=== PATIENT | female | born 1970 | race Caucasian/White ===

== ENCOUNTER 2021-01-17 16:29 | Inpatient (IN) | payer OTHER, SELFPAY ==
[2021-01-17 16:39] VITALS: BP 144/98; PULSE 94; RESP 18; TEMP 36.7; O2SAT 100; BMI 23.3
[2021-01-17 19:44] VITALS: BP 135/89; PULSE 77; RESP 17; O2SAT 96
--- NOTE | 2021-01-17 20:01 | ECG_ITS ---
[facility] Test Date: 2021-01-17 Pat Name: Pilar Lara Department: Room: Gender: Female Transmitter Engineer: : [id number] Requested By: Ludin Cooney Order Number: [id number] Marta MD: Mervin Coronado M.D. Measurements Intervals [place] Rate: 82 P: 79 NM: 129 QRS: 97 QRSD: 139 T: 76 QT: 440 QTc: 516 Interpretive Statements SINUS RHYTHM WITH SINUS ARRHYTHMIA BORDERLINE RIGHT AXIS DEVIATION [QRS AXIS > 90] INTRAVENTRICULAR CONDUCTION DELAY [130+ ms QRS DURATION] POSSIBLE ANTERIOR MYOCARDIAL INFARCTION [30 ms Q WAVE IN V3/V4, OR R < 0.2 mV IN V4], OF INDETERMINATE AGE No previous ECG available for comparison Electronically Signed On 01-19-2021 14:46:04 CDT by Mervin Coronado M.D. [id number]
--- NOTE | 2021-01-17 20:02 | W.ED.GENADLT ---
HPI - General Adult General: Chief complaint: General Medical Stated complaint: Tick Bites/ Poss Hallucinations, Nausea Time Seen by Provider: 01/17/21 19:47 History of Present Illness: HPI narrative: This patient is a 50-year-old female who presents to the emergency department with having some odd behaviors with sister. Patient states that she was looking in the mirror this morning believe the baby takes were coming out of her neck. Patient states she scratched it Raw but try to get rid of all the takes. States that for several weeks she has had problems with seed ticks in her home. 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 Sister states that the patient has a long history of taking kratom and other herbal type medications and anxiety related medications. Patient also takes medications for fibromyalgia. Patient denies having history of bipolar disorder however the patient appears to be hypomanic. Patient states she has not been sleeping well for the past 3 weeks. And then cleans the house excessively. Patient excoriations all over her skin from where she states it takes her come out of her skin. Patient also has been taking other [id number] medications called HenryHappyBox and spoke superior marijuana oil. States it is not CBD oil but something stronger that she gets online. Patient is disheveled. Sisters believe that patient might be taking methamphetamine also. Patient does appear to be having some kind of psychosis with hallucinations. Patient avoids eye contact. Will do medical evaluation treat as needed. Onset (ago): week(s) Associated symptoms: Deny chest pain, dyspnea, headache(s), nausea, rash, palpitations or vomiting Review of Systems General: Reports: 10 or more systems reviewed and unremarkable except in HPI and below Const: Denies: fever(s), chills, body aches or fatigue Eyes: Denies: change in vision or blurry vision ENMT: Denies: throat pain, hoarseness or mouth pain Card: Denies: chest pain, palpitations, irregular heart rhythm, edema, swelling of feet/ankles or lightheadedness Resp: Denies: dyspnea, productive cough, non-productive cough, wheezing or pain on inspiration GI: Denies: abdominal pain, nausea or vomiting : Denies: flank pain, difficulty voiding, dysuria, urinary frequency, urinary urgency or urinary hesitancy Musc: Denies: neck pain, back pain, extremity pain, extremity swelling, joint pain, joint swelling, joint redness, joint warmth or limited range of motion Skin/Breast: Denies: rash, pruritus, erythema or skin tenderness Neuro: Denies: headache(s), numbness in extremities or weakness in extremities Psych: Reports: sleeping less, paranoia, difficulty concentrating, visual hallucinations and tactile hallucinations; Denies: anxiety or depression PFSH ED PFSH: Social History Current gender identity: Female Physical Exam Const: COMMON NORMALS: no acute distress, average body habitus, patient oriented x3, no limitations, healthy appearing, alert and well nourished HENMT: COMMON NORMALS: normocephalic, atraumatic, hearing grossly normal bilaterally, external ears normal, EAC's normal, TM's normal bilaterally, Normal external nose present, Normal nasal mucous membranes and turbinates present, moist oral mucous membranes, oropharynx normal, dentition normal and gingiva normal HEAD & SCALP: normocephalic and atraumatic NOSE: Normal external nose present and Normal nasal mucous membranes and turbinates present EXTERNAL EAR: Yes external ears normal EXTERNAL AUDITORY CANAL: EAC's normal TYMPANIC MEMBRANE: TM's normal bilaterally Neck/C-Spine: COMMON NORMALS: full ROM, no lymphadenopathy, supple, no meningeal signs, no JVD, Thyroid normal and No carotid bruits THYROID: Thyroid normal Chest: COMMONS NORMALS: normal inspection of the chest, normal palpation of entire chest wall, normal inspection of the breasts and normal palpation of the breasts Breast/axilla inspection: Yes normal inspection of the breasts BREAST/AXILLA PALPATION: Yes normal palpation of the breasts Resp: COMMON NORMALS: normal respiratory effort, No retractions, No use of accessory muscles, clear to auscultation bilaterally and percussion normal AUSCULTATION: clear to auscultation bilaterally PERCUSSION: percussion normal Cardio: COMMON NORMALS: no JVD, regular rate, regular rhythm, S1 normal heart sound present, S2 normal heart sound present, No gallops present (Cardio), No clicks present (Cardio), No murmurs present (Cardio), No rub (Cardio) and Peripheral pulses 2+ throughout RATE: regular rate RHYTHM: regular rhythm HEART SOUNDS: S1 normal heart sound present and S2 normal heart sound present PERIPHERAL PULSES: Peripheral pulses 2+ throughout GI: COMMON NORMALS: Normal to inspection, nondistended, normoactive bowel sounds present, Soft to palpation, non-tender, No hepatosplenomegaly present, no masses and no bruits PALPATION: Yes Soft to palpation and Yes No hepatosplenomegaly present : COMMON NORMALS: Yes no CVA tenderness, Yes normal external appearance, Yes normal appearance of the vagina, Yes normal appearance of the cervix, Yes normal bimanual exam, Yes No adnexal tenderness and Yes no masses BLADDER/KIDNEY EXAM: Yes no CVA tenderness BIMANUAL EXAM - VAGINA & UTERUS: Yes normal bimanual exam Back/Pelvis: COMMON NORMALS: no CVA tenderness, thoracic and lumbar spine normal to inspection, no thoracic nor lumbar tenderness, thoraco-lumbar ROM normal and straight leg raise negative bilaterally Extremity: COMMON NORMALS: normal to inspection, full ROM, capillary refill normal, no joint enlargement, no clubbing, cyanosis or edema, no calf tenderness and no pedal edema Neuro: COMMON NORMALS: patient oriented x3 SENSORIUM/ORIENTATION: Yes alert MENINGEAL SIGNS: Yes no meningeal signs Psych: COMMON NORMALS: cooperative APPEARANCE: Yes disheveled ATTITUDE: Yes bizarre ACTIVITY/MOTOR BEHAVIOR: Yes fidgeting and Yes Avoids eye contact (attititude/behavior) THOUGHT PROCESS: Flight of ideas present THOUGHT CONTENT: Yes delusions and Yes Hallucination(s) present Skin: COMMON NORMALS: no wounds, no jaundice, no petechiae and no mottling NARRATIVE SKIN EXAM: Patient has significant excoriations around her neck and chest area. Patient also has some erythema to the lower extremities consistent with vasculitis and poor hygiene. Course Reevaluation(s): Reevaluation #1: I did discuss at length with patient and family about findings. Concerning the patient's hallucinations and psychosis is related to methamphetamine abuse. Patient now admits that she has been abusing methamphetamine by smoking since the age of 27 states she usually rolls it on a piece of toilet paper. Smoking over a day per time. Patient also abuses abuses other medications like [place], Henry Candelaria and others. Patient has not slept in several days. Patient is agreeable for admission to the hospital. Time: 23:24 Consultations: Consultation #1: I did discuss at length with Dr. Coon psychiatry. He is agreeable to admit the patient for observation. Time: 23:24 Vital Signs: Vital signs: Vital Signs Temperature 98.1 F 01/17/21 16:39 Pulse Rate 72 01/17/21 22:08 Respiratory Rate 18 01/17/21 22:08 Blood Pressure 128/75 01/17/21 22:08 Pulse Oximetry 98 01/17/21 22:08 MDM - General Adult MDM Narrative: Medical decision making narrative: This patient is a 50-year-old female who presents to the emergency department with having some odd behaviors with sister. Patient states that she was looking in the mirror this morning believe the baby takes were coming out of her neck. Patient states she scratched it Raw but try to get rid of all the takes. States that for several weeks she has had problems with seed ticks in her home. 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 Sister states that the patient has a long history of taking kratom and other herbal type medications and anxiety related medications. Patient also takes medications for fibromyalgia. Patient denies having history of bipolar disorder however the patient appears to be hypomanic. Patient states she has not been sleeping well for the past 3 weeks. And then cleans the house excessively. Patient excoriations all over her skin from where she states it takes her come out of her skin. Patient also has been taking other obtr-mma-rizsjbr medications called Henry main and spoke superior marijuana oil. States it is not CBD oil but something stronger that she gets online. Patient is disheveled. Sisters believe that patient might be taking methamphetamine also. Patient does appear to be having some kind of psychosis with hallucinations. Patient avoids eye contact. I did discuss at length with patient and family about findings. Concerning the patient's hallucinations and psychosis is related to methamphetamine abuse. Patient now admits that she has been abusing methamphetamine by smoking since the age of 27 states she usually rolls it on a piece of toilet paper. Smoking over a day per time. Patient also abuses abuses other medications like [place], Henry Candelaria and others. Patient has not slept in several days. Patient is agreeable for admission to the hospital. I did discuss at length with Dr. Coon psychiatry. He is agreeable to admit the patient for observation. Lab Data: Labs: Lab Results 01/17/21 01/17/21 01/17/21 Range/Units 20:18 20:18 21:30 WBC 7.2 (4.0-10.0) 10^3/ uL RBC 4.70 (4.1-5.3) 10^6/u L Hgb 13.5 (11.5-15.3) g/dL Hct 41.3 (37.0-47.0) % MCV 87.9 (81-99) fL MCH 28.7 (28.0-34.0) pg MCHC 32.7 (30.0-36.0) g/dL RDW 13.1 (12.1-15.1) % Plt Count 300 (130-400) 10^3/c mm MPV 9.9 (7.4-10.4) fL Neut % (Auto) 55.7 % Lymph % (Auto) 27.7 % Banner % (Auto) 10.2 % Eos % (Auto) 5.6 % Baso % (Auto) 0.7 % Neut # (Auto) 3.98 (1.8-7.7) 10^3/u L Lymph # (Auto) 2.0 (0.8-4.8) 10^3/u L Banner # (Auto) 0.7 (0.2-0.9) 10^3/u L Eos # (Auto) 0.4 (0.0-0.8) 10^3/u L Baso # (Auto) 0.1 (0.0-0.1) 10^3/u L Nucleated RBC % (a uto) 0 % Nucleated RBCs # 0.0 /100WBC Sodium 140 (136-145) mmol/L Potassium 3.4 L (3.5-5.1) mmol/L Chloride 103 (98-107) mmol/L Carbon Dioxide 25 (22-29) mmol/L Anion Gap 15.4 (5-19) BUN 5 L (6-20) mg/dL Creatinine 0.7 (0.5-0.9) mg/dL GFR Calculation 87.9 L (90-130) mL/min Glucose 91 (65-115) mg/dL Calculated Osmolal ity 287 (285-295) mOsm/k g Calcium 9.3 (8.5-10.5) mg/dL Total Bilirubin 0.3 (0.15-1.2) mg/dL AST 19 (0-32) U/L ALT 16 (0-33) U/L Alkaline Phosphata se 90 (35-105) IU/L Total Protein 6.6 (6.6-8.7) g/dL Albumin 4.5 (3.5-5.2) g/dL Globulin 2.1 (1.3-4.6) g/dL Urine Color Yellow (Yellow) Urine Appearance Clear (CLEAR) Urine pH 8 H (5-7) Ur Specific Gravit y 1.005 (1.005-1.030) Urine Protein Neg (Negative) Urine Glucose (UA) Norm (Normal) Urine Ketones Negative (Negative) Urine Blood Neg (Negative) Urine Nitrate Negative (Negative) Urine Bilirubin Neg (Negative) Prot Sulfosalicyli c Acd Negative (Negative) Urine Urobilinogen Norm (Negative) mg/dL Ur Leukocyte Chantelle ase Negative (Negative) Salicylates < 0.3 L (3-10) mg/dL Urine Opiates Scre en (Negative) ng/mL Acetaminophen < 5.0 L (10-30) ug/mL Ur Barbiturates Sc reen (Negative) ng/mL Ur Phencyclidine S crn (Negative) ng/mL Ur Amphetamines Sc reen (Negative) ng/mL U Benzodiazepines Scrn (Negative) ng/mL Urine Cocaine Scre en (Negative) ng/mL U Marijuana (THC) Screen (Negative) ng/mL Ethyl Alcohol < 10 (0-10) mg/dL 01/17/21 Range/Units 21:30 WBC (4.0-10.0) 10^3/ uL RBC (4.1-5.3) 10^6/u L Hgb (11.5-15.3) g/dL Hct (37.0-47.0) % MCV (81-99) fL MCH (28.0-34.0) pg MCHC (30.0-36.0) g/dL RDW (12.1-15.1) % Plt Count (130-400) 10^3/c mm MPV (7.4-10.4) fL Neut % (Auto) % Lymph % (Auto) % Banner % (Auto) % Eos % (Auto) % Baso % (Auto) % Neut # (Auto) (1.8-7.7) 10^3/u L Lymph # (Auto) (0.8-4.8) 10^3/u L Banner # (Auto) (0.2-0.9) 10^3/u L Eos # (Auto) (0.0-0.8) 10^3/u L Baso # (Auto) (0.0-0.1) 10^3/u L Nucleated RBC % (a uto) % Nucleated RBCs # /100WBC Sodium (136-145) mmol/L Potassium (3.5-5.1) mmol/L Chloride (98-107) mmol/L Carbon Dioxide (22-29) mmol/L Anion Gap (5-19) BUN (6-20) mg/dL Creatinine (0.5-0.9) mg/dL GFR Calculation (90-130) mL/min Glucose (65-115) mg/dL Calculated Osmolal ity (285-295) mOsm/k g Calcium (8.5-10.5) mg/dL Total Bilirubin (0.15-1.2) mg/dL AST (0-32) U/L ALT (0-33) U/L Alkaline Phosphata se (35-105) IU/L Total Protein (6.6-8.7) g/dL Albumin (3.5-5.2) g/dL Globulin (1.3-4.6) g/dL Urine Color (Yellow) Urine Appearance (CLEAR) Urine pH (5-7) Ur Specific Gravit y (1.005-1.030) Urine Protein (Negative) Urine Glucose (UA) (Normal) Urine Ketones (Negative) Urine Blood (Negative) Urine Nitrate (Negative) Urine Bilirubin (Negative) Prot Sulfosalicyli c Acd (Negative) Urine Urobilinogen (Negative) mg/dL Ur Leukocyte Chantelle ase (Negative) Salicylates (3-10) mg/dL Urine Opiates Scre en Negative (Negative) ng/mL Acetaminophen (10-30) ug/mL Ur Barbiturates Sc reen Negative (Negative) ng/mL Ur Phencyclidine S crn Negative (Negative) ng/mL Ur Amphetamines Sc reen Positive H (Negative) ng/mL U Benzodiazepines Scrn Negative (Negative) ng/mL Urine Cocaine Scre en Negative (Negative) ng/mL U Marijuana (THC) Screen Negative (Negative) ng/mL Ethyl Alcohol (0-10) mg/dL EKG Data^: EKG 1: Attestation: I personally reviewed and interpreted this EKG as follows: EKG interpretation date: 01/17/21 EKG interpretation time: 20:07 Prior EKG tracings: not available for review Interpretation: Sinus rhythm with sinus arrhythmia. Questionable right axis deviation. Interventricular conduction delay. Heart rate 82 nonspecific EKG changes. Discharge Plan Discharge Patient Disposition: Placed in Observation Clinical Impression: Acute psychosis, Methamphetamine abuse, Polysubstance abuse Condition: Stable Prescriptions: No Action sumatriptan succinate 100 mg tablet 100 mg PO Q2H PRN (Reason: Headache) RF: 0 omeprazole 40 mg capsule,delayed release(DR/EC) 40 mg PO DAILY RF: 0 trazodone 100 mg tablet 100 mg PO BEDTIME RF: 0 albuterol sulfate 90 mcg/actuation HFA aerosol inhaler 2 inh INHALATION QID PRN (Reason: Shortness Of Breath) RF: 0 topiramate 100 mg tablet 100 mg PO DAILY RF: 0 duloxetine 60 mg capsule,delayed release(DR/EC) 60 mg PO BID RF: 0 Referrals: Delphine Cabral RN [Primary Care Provider] - Coding Level of Care Code ED Manager Consumer for Chg Fwd Exam Comprehensive
[2021-01-17] MEDS: sodium chloride 0.9% 1,000 ML 999 ML IV (20:17)
[2021-01-17 20:25] LABS: Basophils # 0.1 10^3/uL (0.0-0.1); Basophils % 0.7 %; Eosinophils # 0.4 10^3/uL (0.0-0.8); Eosinophils % 5.6 %; Hematocrit 41.3 % (37.0-47.0); Hemoglobin 13.5 g/dL (11.5-15.3); Lymphocytes % 27.7 %; Mean Corpuscular HGB Conc 32.7 g/dL (30.0-36.0); Mean Corpuscular Hemoglobin 28.7 pg (28.0-34.0); Mean Corpuscular Volume 87.9 fL (81-99); Mean Platelet Volume 9.9 fL (7.4-10.4); Monocytes # 0.7 10^3/uL (0.2-0.9); Monocytes % 10.2 %; Neutrophils # 3.98 10^3/uL (1.8-7.7); Neutrophils % 55.7 %; Nucleated Red Blood Cells % 0 %; Platelet Count 300 10^3/cmm (130-400); Red Cell Distribution Width 13.1 % (12.1-15.1); White Blood Count 7.2 10^3/uL (4.0-10.0)
[2021-01-17 20:39] LABS: Alanine Aminotransferase 16 U/L (0-33); Albumin Level 4.5 g/dL (3.5-5.2); Alkaline Phosphatase 90 IU/L (35-105); Anion Gap 15.4 (5-19); Aspartate Amino Transferase 19 U/L (0-32); Blood Urea Nitrogen 5 mg/dL (6-20); Calcium 9.3 mg/dL (8.5-10.5); Carbon Dioxide 25 mmol/L (22-29); Chloride 103 mmol/L (98-107); Globulin 2.1 g/dL (1.3-4.6); Glomerular Filtration Rate 87.9 mL/min (90-130); Glucose 91 mg/dL (65-115); Osmolality Calculated 287 mOsm/kg (285-295); Potassium 3.4 mmol/L (3.5-5.1); Sodium 140 mmol/L (136-145); Total Bilirubin 0.3 mg/dL (0.15-1.2); Total Protein 6.6 g/dL (6.6-8.7)
[2021-01-17 20:40] LABS: Acetaminophen < 5.0 ug/mL (10-30); Alcohol Level < 10 mg/dL (0-10); Salicylate < 0.3 mg/dL (3-10)
[2021-01-17 21:46] LABS: Add Urine Microscopic? NO; Charge for UA Resulting for Rev
[2021-01-17 21:55] LABS: Bilirubin Urine Neg (Negative); Blood Urine Neg (Negative); Glucose Urine UA Norm (Normal); Ketones Urine Negative (Negative); Leukocyte Esterase Urine Negative (Negative); Nitrate Urine Negative (Negative); Protein Urine Neg (Negative); Specific Gravity, Urine 1.005 (1.005-1.030); Sulfosalicylic Acid Urine Negative (Negative); Urine Appearance Clear (CLEAR); Urine Color Yellow (Yellow); Urobilinogen Urine Norm (Negative); pH Urine 8 (5-7)
[2021-01-17 22:08] VITALS: BP 128/75; PULSE 72; RESP 18; O2SAT 98
[2021-01-17 22:13] LABS: Amphetamines Screen Urine Positive (Negative); Barbiturates Screen Urine Negative (Negative); Benzodiazepines Screen Urine Negative (Negative); Cocaine Screen Urine Negative (Negative); Opiate Screen Urine Negative (Negative); PCP Screen Urine Negative (Negative); THC Screen Urine Negative (Negative)
[2021-01-17 23:49] VITALS: BP 127/81; PULSE 71; RESP 17; O2SAT 98
[2021-01-18 00:15] VITALS: BP 130/83; PULSE 75; RESP 21; TEMP 36.7; O2SAT 99
--- NOTE | 2021-01-18 01:00 | PC.NURSE ---
Skin Assessment Pt does not have surgical scars, she does have two small pimple-like areas on her chest. She kept her underwear and socks at bedside, removed her rivera hair clips.
[2021-01-18 03:55] VITALS: RESP 18
[2021-01-18 13:37] VITALS: BP 133/81; PULSE 82; RESP 14; TEMP 37; O2SAT 97
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
[2021-01-18 21:15] VITALS: BP 129/83; PULSE 68; RESP 18; TEMP 36.6; O2SAT 96
[2021-01-19] MEDS: trazodone 50 mg Tablet PO (01:09)
[2021-01-19] MEDS: hyDROXYzine 25 mg Capsule 50 MG PO (01:09)
[2021-01-19 06:00] VITALS: BP 135/86; PULSE 73; RESP 17; TEMP 36.6; O2SAT 96
[2021-01-19] MEDS: topiramate 100 mg Tablet PO (10:09)
[2021-01-19 14:00] VITALS: BP 134/69; PULSE 77; RESP 18; TEMP 37.1; O2SAT 94
--- NOTE | 2021-01-19 17:37 | PM.NPN ---
Subjective NPU Subjective: Interval history: Pilar presents today reporting that she does not believe she probably had tics. She was able to have a reasonable conversation about her methamphetamine use likely probably still downplaying it but at least acknowledging that it exists as a problem that needs addressed and that her behaviors likely represented psychosis secondary to her methamphetamine use. She reports that she has been able to speak to her sister and they are trying to look at solutions to her current situation so that she will have supports and not lack accountability in her living arrangement. We talked about the possibility of discharge if she remains stable in the next 24 to 48 hours. Mental Status Exam MSE Comments: This is a slender white female limited grooming and eye contact. No abnormal movements except for psychomotor agitation. More cooperative with exam in no acute distress. Speech was more normal rate and volume. Mood described as a little better, affect odd. Thought process mostly organized. Thought content: Patient denied suicidal or homicidal ideation, there were no delusions reported or noted, she denied auditory or visual hallucinations, but was clearly having visual hallucinations. Attention and concentration were intact and memory was mostly reliable but none were formally tested. She is alert and oriented times 3. Insight and judgment are improving, impulse control is limited, but improving. Vitals/I&O/Wt Last Vital Signs Temp 97.9 F 01/19/21 20:14 Pulse 71 01/19/21 20:14 Resp 17 01/19/21 20:14 BP 159/68 01/19/21 20:14 Pulse Ox 90 01/19/21 20:14 Data NPU : 01/17/21 20:18 01/17/21 20:18 A&P Additional A&P Information (1) Acute psychosis: (2) Methamphetamine abuse: (3) Polysubstance abuse: Additional A&P Information This is a 50-year-old white female with a long history of addiction and psychosocial challenges who presents with active methamphetamine use with likely methamphetamine induced psychosis who presents unaware of her psychosis and desiring to leave. 1. Continue current medication. 2. Continue every 15 minute checks for safety. 3. Encourage individual, group and milieu therapies. 4. Encourage sober living treatment after discharge at the highest level of care to which he is willing to commit. Involuntary Hold Information 96 Hour Hold: 96 Hour Involuntary Admission: No Attestations NPU Medical Necessity Statement*: Inpatient hospitalization is medically necessary and the clinically appropriate intervention at this time. Likely length of stay 1-3 days. Coding Level of Care Code Acute Lead Front Desk Agent for Jeb Solano
[2021-01-19 20:14] VITALS: BP 159/68; PULSE 71; RESP 17; TEMP 36.6; O2SAT 90
[2021-01-19] MEDS: pantoprazole DR 40 mg Tablet PO (20:16)
--- NOTE | 2021-01-19 20:30 | PC.NURSE ---
Behavior Pt is hostile, irritable, and reports fibromyalgia pain that is not well controlled. Med nurse notified. Dr Coon ordered home meds to be restarted. Protonix 40mg PO once one given.
[2021-01-19] MEDS: duloxetine 60 mg Capsule PO (20:38)
[2021-01-19] MEDS: trazodone 100 mg Tablet PO (20:38)
[2021-01-19] MEDS: acetaminophen 325 mg Tablet 650 MG PO (20:38)
[2021-01-20 06:00] VITALS: BP 116/71; PULSE 61; RESP 17; TEMP 36.9; O2SAT 97
[2021-01-20] MEDS: topiramate 100 mg Tablet PO (08:29)
[2021-01-20] MEDS: duloxetine 60 mg Capsule PO (08:29)
[2021-01-20] MEDS: pantoprazole DR 40 mg Tablet PO (08:29)
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
[2021-01-20 13:11] VITALS: BP 116/71; PULSE 61; RESP 17; TEMP 36.9; O2SAT 97
== END 2021-01-20 14:20 | disposition home or self-care (01) | DRG 897 ==
LOC: ER 23:33 → NP 23:42
PROVIDERS: Admitting Provider Psychiatry & Neurology Psychiatry; Emergency Provider Emergency Medicine; Visit Provider Psychiatry & Neurology Psychiatry
DX: F15.151 Other stimulant abuse with stimulant-induced psychotic disorder with hallucinations (principal); F41.9 Anxiety disorder, unspecified; M79.7 Fibromyalgia; S10.91XA Abrasion of unspecified part of neck, initial encounter; X58.XXXA Exposure to other specified factors, initial encounter; F32.9 Major depressive disorder, single episode, unspecified
CPT/HCPCS: 80053; 80306; 80307; 81003; 85025; 93005; 96360; 99285; G0378; J7030

== ENCOUNTER → 2021-09-27 15:56 | Outpatient (BNVA) | payer OTHER, SELFPAY | PROVIDERS: Visit Provider Nurse Practitioner Psychiatric/Mental Health | DX: Z03.89 Encounter for observation for other suspected diseases and conditions ruled out (principal) | CPT/HCPCS: 80053; 80307 ==

== ENCOUNTER → 2022-05-17 08:25 | Outpatient (BNVA) | payer SELFPAY | PROVIDERS: Visit Provider Nurse Practitioner Women's Health | DX: Z11.3 Encounter for screening for infections with a predominantly sexual mode of transmission (principal); Z12.4 Encounter for screening for malignant neoplasm of cervix | CPT/HCPCS: 86592; 86803; 87340; 87491; 87591; 87624; 87661; 87806 ==

== ENCOUNTER → 2022-09-17 16:43 | Outpatient (BNVA) | payer OTHER, SELFPAY | PROVIDERS: Visit Provider Nurse Practitioner Psychiatric/Mental Health | DX: Z03.89 Encounter for observation for other suspected diseases and conditions ruled out (principal) | CPT/HCPCS: 80307 ==

== ENCOUNTER 2023-01-03 14:34 | Outpatient (CLI) | payer OTHER, SELFPAY ==
--- NOTE | 2023-01-03 14:30 | XR_ITS ---
WS: [id number] DEXA (DUAL ENERGY X-RAY ABSORPTIOMETRY) Bone mineral density was performed using a [employer] machine. HISTORY: post-menopausal COMPARISON: None available. Lumbar spine BMD (L1-L4): 1.020 g/cm2 T score: -1.3 Z score: -0.7 Total hip BMD: Left: 0.865 g/cm2. T score: -1.1 Z score: -0.6 Right: 0.912 g/cm2. T score: -0.8 Z score: -0.2 10 year probability of a major osteoporotic fracture is 12.0%. XR/XR DEXA axial skeleton* [id number] IMPRESSION: OSTEOPENIA based upon the WHO classification for females.
--- NOTE | 2023-01-03 14:43 | MM_ITS ---
WS: [id number] VIEWS: MLO and CC views both breasts. 3D digital tomosynthesis is also included in this exam. Comparison made with prior exam of 05/20/2008, 01/23/2011, 07/19/2014, 07/20/2015,. Findings: There was no sign of mass, architectural distortion or suspicious calcification in either breast. Th e breasts are heterogeneously dense which may obscure small masses MM/[place] [id number] Impression: BI-RADS: 2-Benign finding. FOLLOW-UP: 1 Year Follow-up This mammogram was also analyzed by the Computer Aided Detection System [employer].
== END 2023-01-03 14:35 | disposition home or self-care (01) ==
LOC: RAD 14:37
PROVIDERS: PCP Family Medicine; Visit Provider Family Medicine
DX: Z12.31 Encounter for screening mammogram for malignant neoplasm of breast (principal); M85.80 Other specified disorders of bone density and structure, unspecified site; Z78.0 Asymptomatic menopausal state
CPT/HCPCS: 77063; 77067; 77080

== ENCOUNTER 2023-02-15 08:03 | Outpatient (CLI) | payer OTHER, SELFPAY ==
[2023-02-15 08:55] LABS: Basophils % 0.5 %; Eosinophils # 0.3 10^3/uL (0.0-0.8); Eosinophils % 5.3 %; Hematocrit 40.3 % (37.0-47.0); Hemoglobin 13.4 g/dL (11.5-15.3); Lymphocytes # 1.5 10^3/uL (0.8-4.8); Lymphocytes % 26.5 %; Mean Corpuscular HGB Conc 33.3 g/dL (30.0-36.0); Mean Corpuscular Hemoglobin 28.5 pg (28.0-34.0); Mean Corpuscular Volume 85.6 fl (81-99); Mean Platelet Volume 9.6 fL (7.4-10.4); Monocytes # 0.6 10^3/uL (0.2-0.9); Monocytes % 9.8 %; Neutrophils # 3.35 10^3/uL (1.8-7.7); Neutrophils % 57.6 %; Nucleated Red Blood Cells % 0 %; Platelet Count 259 10^3/cmm (130-400); Red Blood Count 4.71 10^6/uL (4.1-5.3); Red Cell Distribution Width 12.6 % (12.1-15.1); White Blood Count 5.8 10^3/uL (4.0-10.0)
[2023-02-15 09:06] LABS: Ammonia 59 umol/L (11-51)
[2023-02-15 09:12] LABS: Valproic Acid Level 12.9 ug/mL (50-100)
[2023-02-15 09:37] LABS: 25 Hydroxy Vitamin D 61 ng/mL (30-100); Alanine Aminotransferase 19 U/L (0-33); Albumin Level 4.4 g/dL (3.5-5.2); Alkaline Phosphatase 76 U/L (35-105); Anion Gap 14.2 (5-19); Aspartate Amino Transferase 17 U/L (0-32); Blood Urea Nitrogen 16 mg/dL (6-20); Calcium 8.8 mg/dL (8.5-10.5); Carbon Dioxide 29 mmol/L (22-29); Chloride 102 mmol/L (98-107); Chol HDL Ratio 3.22 mg/dL (0.0-4.40); Cholesterol 203 mg/dL (0-200); Globulin 2.4 g/dL (1.3-4.6); Glomerular Filtration Rate 87.2 mL/min (90-130); Glucose 96 mg/dL (65-115); HDL Cholesterol 63 mg/dL (60-100); LDL Cholesterol Calculated 119 mg/dL (50-129); LDL HDL Ratio 1.89 RATIO (0.00-3.22); Osmolality Calculated 293 mOsm/kg (285-295); Potassium 4.2 mmol/L (3.5-5.1); Sodium 141 mmol/L (136-145); Thyroid Stimulating Hormone 0.81 uIU/mL (0.27-4.20); Total Bilirubin 0.4 mg/dL (0.15-1.2); Total Protein 6.8 g/dL (6.6-8.7); Triglycerides 104 mg/dL (0-150)
== END 2023-02-15 08:04 | disposition home or self-care (01) ==
PROVIDERS: Nurse Practitioner; PCP Family Medicine; Visit Provider Family Medicine
DX: E55.9 Vitamin D deficiency, unspecified (principal); Z13.6 Encounter for screening for cardiovascular disorders; Z86.39 Personal history of other endocrine, nutritional and metabolic disease; Z51.81 Encounter for therapeutic drug level monitoring
CPT/HCPCS: 36415; 80053; 80061; 80164; 82140; 82248; 82306; 84443; 85025

== ENCOUNTER 2023-04-21 11:32 | Emergency (ER) | payer OTHER, SELFPAY ==
[2023-04-21 11:45] VITALS: BMI 24.2
[2023-04-21 11:47] VITALS: BP 121/79; PULSE 92; RESP 16; TEMP 36.6; O2SAT 100
--- NOTE | 2023-04-21 12:37 | CT_ITS ---
WS: [id number] CT HEAD NONCONTRAST HISTORY: injury TECHNIQUE: Contiguous axial imaging performed through the brain in 2.5 mm imaging. Bone and soft tiss ue windows. Sagittal and coronal reformats reviewed. All CT scans at [facility] use at least one of these dose optimization techniques: automated exposure control; mA and/or kV adjustment per pa tient size (includes targeted exams where dose is matched to clinical indication); or iterative recon struction. DLP: 1335.80 mGy.cm COMPARISON: 08/03/2013 No acute intracranial hemorrhage, midline shift or mass effect. No atrophy or prior infarcts or herniation. Ventricles: Normal size with no hydrocephalus. No inferior displacement of the cerebellar tonsils. Paranasal sinuses: As visualized are clear. Mastoid air cells: Well pneumatized. Calvarium and scalp: No skull fracture. Small LEFT prior occipital scalp hematoma. IMPRESSION: 1. No acute intracranial hemorrhage or edema. 2. Small posterior LEFT parieto-occipital scalp hematoma.
--- NOTE | 2023-04-21 12:39 | ED_ITS ---
HPI - Head Injury General: Chief complaint: Head Injury Stated complaint: fall, head injury Time Seen by Provider: 04/21/23 12:30 Source: patient Mode of arrival: ambulatory Limitations: no limitations History of Present Illness: 52-year-old female states that 2 hours ago she tripped and fell backwards. States that she did hit the back of her head on the floor and has had posterior head and neck pain she rates a 5 out of 10 denies any loss conscious does have a headache denies any vomiting. She denies any other injuries. Associated symptoms: Reports neck pain; Deny nausea or vomiting Review of Systems Const: Denies: fever(s), chills, body aches or change in appetite Eyes: Denies: blurry vision or eye discomfort ENMT: Denies: throat pain or dental pain Card: Denies: chest pain Resp: Denies: dyspnea GI: Denies: abdominal pain, nausea, vomiting or diarrhea : Denies: dysuria Musc: Reports: neck pain; Denies: back pain Skin/Breast: Denies: rash Neuro: Reports: headache(s) PFSH ED PFSH: Medical History Adult ADHD Chronic migraine Major depressive disorder, recurrent, in partial remission Methamphetamine abuse Sober for two years Psychiatric care Surgical History Hx of foot surgery R foot Hx of hysterectomy (~04/23/16) Total vaginal hysterectomy, Left salpingo-oophorectomy, Right salpingectomy, Anterior vaginal repair, Solyx single incision suburethral sling, Cystoscopy. Diagnosis: Incomplete uterovaginal prolapse, Mixed urinary incontinence, Menorrhagia with regular cycles. Performed by Dr. Ludin Youngblood at [facility] in [place], [place]. Family History Unknown Breast cancer Several family members on paternal side Heart disease maternal side Mother Heart disease Diabetes Sister Stroke Denies family history of Colon cancer Ovarian cancer Hypercholesteremia Hypertension Uterine cancer Thyroid disease Physical Exam Const: COMMON NORMALS: no acute distress, patient oriented x3 and healthy appearing HENMT: COMMON NORMALS: normocephalic HEAD & SCALP: normocephalic OTHER: tenderness to posterior scalp Eye: COMMON NORMALS: Equal, round and reactive pupils present and EOMs intact bilaterally PUPIL: Yes Equal, round and reactive pupils present Neck/C-Spine: COMMON NORMALS: full ROM and supple Chest: COMMONS NORMALS: normal inspection of the chest Resp: COMMON NORMALS: normal respiratory effort Cardio: COMMON NORMALS: regular rate, regular rhythm and No murmurs present (Cardio) RATE: regular rate RHYTHM: regular rhythm Extremity: COMMON NORMALS: normal to inspection and full ROM Neuro: COMMON NORMALS: patient oriented x3, moves all extremities and no focal motor deficits Psych: COMMON NORMALS: mental status grossly normal, Normal thought process present and cooperative THOUGHT PROCESS: Normal thought process present Skin: COMMON NORMALS: no rashes or lesions noted and no wounds GENERAL SKIN EXAM: no rashes or lesions noted Course Vital Signs: Vital signs: Vital Signs Temperature 97.9 F 04/21/23 11:47 Pulse Rate 92 04/21/23 11:47 Respiratory Rate 16 04/21/23 11:47 Blood Pressure 121/79 04/21/23 11:47 Pulse Oximetry 100 04/21/23 11:47 Oxygen Delivery Me thod Room Air 04/21/23 11:47 MDM - Head Injury Medcial Decision Making Patient presents with closed head injury patient's CT scans here are normal she is well-appearing here she is stable for discharge she is to follow-up with her PCP and return if worsening she understands agrees to plan. Medical Records I reviewed the patient's medical records. All radiology interpretation(s) finalized by discharge Discharge Plan Discharge Patient Disposition: Home Clinical Impression: Closed head injury Condition: Stable Prescriptions: No Action fluticasone propion-salmeterol [Advair Diskus] 250-50 mcg/dose blister with device 1 inh inhalation BID Qty: 60 2RF albuterol sulfate 90 mcg/actuation HFA aerosol inhaler 2 inh INHALATION QID PRN (Reason: Shortness Of Breath) Qty: 8.5 2RF duloxetine 60 mg capsule,delayed release(DR/EC) 60 mg PO BID Qty: 60 2RF hydrocortisone 2.5 % ointment 1 g topical DAILY PRN (Reason: Rash) Emgality Syringe 120 mg/mL syringe 240 mg SUBCUT ONCE Qty: 2 0RF Rx Instructions: loading dose atomoxetine 40 mg capsule 80 mg PO QAM Qty: 60 2RF Rx Instructions: Take two capsules by mouth every morning sumatriptan succinate 100 mg tablet See Rx Instructions PO .COMPLEX Qty: 18 3RF Rx Instructions: take 1 tab at onset of headache; if no relief, may repeat 1 tab after at least 2 hrs; max = 2 tabs/24 hrs PO meloxicam 15 mg tablet 15 mg PO DAILY PRN (Reason: Pain) trazodone 100 mg tablet 200 mg PO BEDTIME PRN (Reason: Insomnia) Discharge Orders: Discharge ED (Routine); Ordered 04/21/23 Ordered By: Shay Templeton Referrals: Ivory Sierra DO [Primary Care Provider] - 1-3 days Discharge Diet: Advance as tolerated Discharge Activity: Resume usual activity Patient Instructions: Head Injury (ED) Coding Level of Care Code ED Shoulder Boner for Jeb Solano
--- NOTE | 2023-04-21 12:39 | CT_ITS ---
WS: [id number] CT CERVICAL SPINE HISTORY: fall TECHNIQUE: Contiguous 2.0 mm axial imaging performed through the entire cervical spine. Sagittal and coronal reformats also performed. All CT scans at [facility] use at least one of these dose o ptimization techniques: automated exposure control; mA and/or kV adjustment per patient size (include s targeted exams where dose is matched to clinical indication); or iterative reconstruction. DLP: 1335.80 mGy.cm COMPARISON: None available. Mild straightening of the normal cervical lordosis. Less than 2 mm anterolisthesis of C4 and C5. Mode rate disc space narrowing at C6-7. Facet joints are normally aligned. Osseous fusion on the RIGHT inv olving the C3 and C4 facets. C2-C3: Mild bilateral facet joint arthritis. Mild LEFT foraminal narrowing. C3-C4: Bilateral facet joint arthritis. Mild RIGHT foraminal narrowing. C4-C5: Marked bilateral facet joint arthritis. Moderate to severe bilateral foraminal stenosis. C5-C6: Moderate bilateral facet joint arthritis and foraminal narrowing. C6-C7: Mild bilateral facet arthritis and foraminal narrowing. C7-T1: Normal. Soft tissues are normal. Lung apices are clear. IMPRESSION: 1. No cervical spine fracture. 2. Multilevel facet joint arthritis as described above.
[2023-04-21] MEDS: HYDROcodone-acetaminophen 5-325 mg Tablet 1 TAB PO (12:41)
== END 2023-04-21 14:11 | disposition home or self-care (01) ==
PROVIDERS: Emergency Provider Emergency Medicine; PCP Family Medicine
DX: S09.8XXA Other specified injuries of head, initial encounter (principal); W01.0XXA Fall on same level from slipping, tripping and stumbling without subsequent striking against object, initial encounter
CPT/HCPCS: 70450; 72125; 99284

== ENCOUNTER 2023-12-05 16:21 | Outpatient (CLI) | payer OTHER, SELFPAY ==
--- NOTE | 2023-12-05 16:29 | XRR_ITS ---
PROCEDURE INFORMATION: Exam: XR Right Shoulder Exam date and time: 12/05/2023 4:37 PM Age: 53 years old Clinical indication: Shoulder; Right; Patient HX: RT arm pain; Radiates from neck to RT arm; No known injury; Additional info: Chronic right shoulder pain TECHNIQUE: Imaging protocol: Radiologic exam of the right shoulder. Views: 2 or more views. COMPARISON: CT cervical spin wo con* [id number] 04/21/2023 1:02 PM FINDINGS: Bones/joints: No acute fracture or dislocation. There is deformity of the right humeral head neck junction compatible with mature bony remodeling with probable old impacted fracture with secondary severe degenerative changes of the glenohumeral joint. The visualized ribs are intact. Acromioclavicular joint alignment is intact. Lungs: Right lung apex is clear. Pleural space: There is no evidence of pneumothorax. Soft tissues: Normal. XR/XR shoulder RT min 2V* [id number] IMPRESSION: 1. No acute fracture or dislocation. 2. There is deformity of the right humeral head neck junction with mature bridging bone compatible with probable old impacted fracture with secondary severe degenerative changes of the glenohumeral joint.
== END 2023-12-05 16:22 | disposition home or self-care (01) ==
PROVIDERS: PCP Family Medicine; Visit Provider Family Medicine
DX: M25.511 Pain in right shoulder (principal); G89.29 Other chronic pain; M21.821 Other specified acquired deformities of right upper arm
CPT/HCPCS: 73030

== ENCOUNTER → 2024-01-15 06:52 | Outpatient (BNVA) | payer OTHER, SELFPAY | PROVIDERS: PCP Family Medicine; Visit Provider Student in an Organized Health Care Education/Training Program | DX: M19.011 Primary osteoarthritis, right shoulder | CPT/HCPCS: 77002 ==

== ENCOUNTER → 2024-02-20 16:22 | Outpatient (BNVA) | payer SELFPAY | PROVIDERS: PCP Family Medicine; Visit Provider Family Medicine | DX: Z72.51 High risk heterosexual behavior (principal); B00.9 Herpesviral infection, unspecified; K21.9 Gastro-esophageal reflux disease without esophagitis | CPT/HCPCS: 81000; 86695; 86696; 87491; 87591 ==

== ENCOUNTER 2024-03-17 07:57 | Outpatient (CLI) | payer SELFPAY ==
--- NOTE | 2024-03-17 08:01 | MM_ITS ---
WS: [id number] BILATERAL SCREENING DIGITAL TOMOSYNTHESIS MAMMOGRAM WITH CAD HISTORY: SCREENING COMPARISON: 01/03/2023, 07/20/2015 Bilateral CC and MLO views with tomosynthesis and synthetic mammography submitted. Computer aided det ection analyzed. Breast composition: The breasts are heterogeneously dense, which may obscure small masses. No suspici ous masses, microcalcifications or architectural distortion. MM/MM scr BI tomosynthesis [id number] IMPRESSION: BI-RADS: 2 - Benign FOLLOW UP: 1 Year Follow-up
== END 2024-03-17 07:58 | disposition home or self-care (01) ==
PROVIDERS: PCP Family Medicine; Visit Provider Family Medicine
DX: Z12.31 Encounter for screening mammogram for malignant neoplasm of breast (principal); R92.333 Mammographic heterogeneous density, bilateral breasts
CPT/HCPCS: 77063; 77067

== ENCOUNTER → 2024-04-30 09:00 | Outpatient (BNVA) | payer SELFPAY | PROVIDERS: PCP Family Medicine; Visit Provider Student in an Organized Health Care Education/Training Program | DX: M25.511 Pain in right shoulder (principal); G89.29 Other chronic pain | CPT/HCPCS: 77002 ==

== ENCOUNTER → 2024-09-09 11:12 | Outpatient (BNVA) | payer OTHER, SELFPAY | PROVIDERS: PCP Family Medicine; Visit Provider Family Medicine | DX: Z13.6 Encounter for screening for cardiovascular disorders (principal) | CPT/HCPCS: 85025 ==

== ENCOUNTER → 2024-09-30 09:34 | Outpatient (BNVA) | payer OTHER, SELFPAY | PROVIDERS: Family Provider Family Medicine; PCP Family Medicine; Visit Provider Family Medicine | DX: Z13.6 Encounter for screening for cardiovascular disorders (principal) | CPT/HCPCS: 80053; 80061; 84443; 85025 ==

== ENCOUNTER → 2024-10-15 09:40 | Outpatient (BNVA) | payer OTHER, SELFPAY | PROVIDERS: Family Provider Family Medicine; PCP Family Medicine; Visit Provider Student in an Organized Health Care Education/Training Program | DX: M19.011 Primary osteoarthritis, right shoulder (principal); M19.012 Primary osteoarthritis, left shoulder; M75.41 Impingement syndrome of right shoulder; M25.511 Pain in right shoulder; G89.29 Other chronic pain | CPT/HCPCS: 77002 ==

== ENCOUNTER 2025-01-11 08:36 | Outpatient (RCR) | payer OTHER, SELFPAY | END 2025-01-27 23:59 | disposition home or self-care (01) | LOC: SPT 08:36 | PROVIDERS: Visit Provider Student in an Organized Health Care Education/Training Program | DX: M47.812 Spondylosis without myelopathy or radiculopathy, cervical region (principal) | CPT/HCPCS: 97161 ==